=== PATIENT | male | born 1985 | race Caucasian/White ===

== ENCOUNTER 2016-05-28 14:22 | Emergency (ER) | payer MEDICAID, OTHER ==
[2016-05-28] MEDS ORDERED: IOPAMIDOL 300 (61%) 150 ML VIAL IV ONE (14:23)
--- NOTE | 2016-05-28 15:20 | RAD ---
ABDOMEN ONE VIEW HISTORY: Ingestion of fishhooks. Supine abdominal radiograph acquired. COMPARISON: 10/27/2015. FINDINGS: BOWEL GAS PATTERN: No small bowel dilatation noted. ABDOMINOPELVIC CALCIFICATIONS: No abnormal calcifications noted. OSSEOUS STRUCTURES: No destructive lesions. RADIOPAQUE FOREIGN BODY: Multiple fishhooks (at least 13, possibly more) are identified projecting over the left mid abdomen and left sacral ala, enteric and colonic position are possible. POSTSURGICAL CHANGE: Multiple anastomotic staple lines. Evidence of prior cholecystectomy. IMPRESSION: 1. At least 13 separate fishhooks are identified, this number likely underestimated due to superimposition of multiple fishhooks. These are of possible enteric or colonic position. 2. Nonobstructive bowel gas pattern with evidence of prior bowel surgery and prior cholecystectomy.
[2016-05-28] MEDS ORDERED: FENTANYL 100 MCG/2 ML VIAL ONE (15:28)
[2016-05-28] MEDS ORDERED: PROCHLORPERAZINE 5 MG/ML 2 ML VIAL ONE (15:28)
[2016-05-28] MEDS ORDERED: LACTATED RINGERS 1,000 ML ONE (15:28)
--- NOTE | 2016-05-28 15:37 | RAD ---
05/28/2016 3:32 PM CHEST - 1 VIEW History: Patient ate fishhook last night Comparison: None Findings: Single AP view of the chest is obtained. The lungs are clear with out effusion or pneumothorax. The cardiomediastinal silhouette is unremarkable.. The osseous structures are intact.. IMPRESSION: No acute intrathoracic process. Please see abdomen series taken at the same time, on the same day for further details.
[2016-05-28 15:50] LABS: BASO # 0.1 K/mm3 (0.0-0.2); EOS # 0.3 (0.0-0.5); EOS % 4.2 % (0.9-2.9); HEMATOCRIT 43.7 % (32.0-52.0); HEMOGLOBIN 14.6 gm/l (14.0-18.0); IMM NEUT% 0.2 % (0-1); LYMPH # 1.8 (1.0-4.8); LYMPH % 22.2 % (15-45); MEAN CELL VOLUME 86.2 fl (80.0-94.0); MEAN CORPUSCULAR HEMOGLOBIN 28.8 pg (27.0-31.0); MEAN CORPUSCULAR HGB CONC 33.4 g/dl (33.0-37.0); MEAN PLATELET VOLUME 9.7 fl (7.4-10.4); MONO # 0.8 (0.0-0.8); MONO % 9.7 % (4-12); NEUT % 62.7 % (43-75); PLATELET COUNT 261 K/mm3 (130-400)
--- NOTE | 2016-05-28 16:00 | CT ---
Exam Type: ABD/PELVIS W/ CON Date and Time: 05/28/2016 3:31 PM Clinical information: Foreign body ingestion. Comparison: Plain films earlier on the same day Technique: Contiguous axial 4 mm images were obtained from the lung bases through the pelvis after the uneventful IV administration of 125 cc of Isovue-300. Sagittal and coronal reformations with high resolution lung algorithm images were also obtained at this time. CT DI: 9.8 DLP 500.2 FINDINGS: Lung base : Dependent and atelectatic changes note the lung bases. Visualized heart:There is no pericardial effusion. LIVER: within normal limits. BILE DUCTS: normal caliber. GALLBLADDER: Surgically absent PANCREAS: within normal limits. SPLEEN: within normal limits. ADRENALS: within normal limits. KIDNEYS: within normal limits. Stomach and small BOWEL: Surgical staple line is identified in multiple locations. The patient's radiopaque fishhook's are scattered throughout mid abdomen, centered about the umbilicus. This is thought to be within the distal ileum. These are thought to be just proximal to the right lower quadrant surgical staple line is seen on image 66. It is difficult to get a definite calculi on the, even streak artifact. Please see plain film study for further details regarding the number of fissures. Large bowel: Air and stool are noted within the large bowel. LYMPH NODES: No enlarged mesenteric lymph nodes. PERITONEUM: no ascites or free air, no fluid collection. VESSELS: within normal limits RETROPERITONEUM: within normal limits. ABDOMINAL WALL: within normal limits. Bladder: Normal BONES: within normal limits. IMPRESSION: Multiple fishhook's are present within the distal small bowel, on either side of the umbilicus. No evidence of perforation. Postsurgical change from prior bowel surgery and cholecystectomy. Findings were called to Dr. Henry at approximately 1556 hours on 05/28/2016.
[2016-05-28 16:14] LABS: CALCIUM 9.9 mg/dL (8.6-10.3)
[2016-05-28 17:25] LABS: URINE BILIRUBIN NEGATIVE (NEGATIVE); URINE BLOOD NEGATIVE (NEGATIVE); URINE GLUCOSE (UA) NEGATIVE (NEGATIVE); URINE LEUKOCYTE ESTERASE NEGATIVE (NEGATIVE); URINE NITRITE NEGATIVE (NEGATIVE); URINE PROTEIN NEGATIVE (NEGATIVE); URINE UROBILINOGEN NORMAL (0-1 mg/dl)
[2016-05-28 17:26] LABS: URINE APPEARANCE CLEAR; URINE COLOR YELLOW
--- NOTE | 2016-05-28 23:40 | CONS ---
JERSON KINNEY [id number] DATE OF SERVICE: 05/28/2016 This is an emergency room consultation. CONSULTING PHYSICIAN: Dr. Elian Henry REASON FOR CONSULTATION: Swallowed fish hooks. HISTORY OF PRESENT ILLNESS: Jerson Kinney is a 30-year-old male who was seen in the emergency room in consultation on 05/28/2016. Apparently within the past 24 hours he reports that he sleepwalks and has ingested foreign bodies. He is pretty sure that he ingested some fish hooks. He reports abdominal pain. He has had no nausea or vomiting. He is evaluated by the emergency room physician and KUB demonstrates numerous treble type fish hooks in the mid abdomen in two main clumps. With that report he had called me and I told him to get a CT scan. The CT scan shows multiple surgical staple lines. There are radiopaque fish hooks in multiple locations, thought to be the distal ileum. No free air was seen. PAST MEDICAL HISTORY: 1. Mental illness, which includes a diagnosis of PTSD. 2. Munchausen's. PAST SURGICAL HISTORY: 1. Appendectomy. 2. Cholecystectomy. 3. According to a history and physical from October of 2015, he had at least three exploratory laparotomies for removal of foreign bodies. Dr. Palacios at that time did an upper endoscopy to remove fish hooks. He has had an esophageal perforation from ingestion of foreign bodies and has been at [facility]. 4. Apparently he has had an umbilical hernia repair. MEDICATIONS: On admission to the emergency room he reports that he is supposed to be on: 1. Klonopin. 2. Xanax. 3. Possibly Vicodin. ALLERGIES: Codeine and morphine. FAMILY HISTORY: Not obtained. SOCIAL HISTORY: Although he did not say it, there was some question of whether he was recently incarcerated for driving under the influence. He smokes cigarettes. Denies drug use. REVIEW OF SYSTEMS: General - no fevers. Cardiac - no complaints. Pulmonary - no complaints. GI - as above. - no complaints. PHYSICAL EXAMINATION: VITAL SIGNS: Temperature 98.3. Pulse 89. Blood pressure 115/61. Respirations 16. GENERAL: He is awake and alert, appears in no distress. HEENT: Head is atraumatic and normocephalic. Sclera nonicteric. CHEST: No obvious thoracotomy scars seen. ABDOMEN: Complex midline scar, with probable retention type coreas. He is diffusely tender, although the abdomen is soft. He has no involuntary guarding. No masses are palpable. No hernias are appreciated. EXTREMITIES: Without cyanosis, clubbing or edema. I have reviewed his CT scan with the radiologist. The fish hooks appear to have at least made it past one small bowel anastomosis. They appear to be in a different location in the CAT scan compared to the original KUB. None are seen in the stomach or colon. I called around to multiple places to see what kind of records I could obtain. He has been in the [place] system at least four times and apparently was transferred up to [facility] because of esophageal perforation. He has had surgery at [place] at least once for laparotomy. LABORATORIES: White blood cell count is 8.0, hemoglobin 14.6 and platelets are 261. His lactate is 1.5. Sodium 140, potassium 4.7, chloride 107 and his carbon dioxide is 27. BUN is 17, creatinine is 0.9 and glucose is 85. I spoke with the Hospitalist ironer machine, as well as the chief of production of the hospital and expressed my concerns about our hospital's ability to care for his mental illness. He is going to require at least one-on-one observation at all times. I am not sure if a phone consultation with psychiatry is adequate care for him postoperatively. ASSESSMENT: 1. Ingestion of multiple fish hooks. 2. Ill-defined psychiatric illness, with features of Munchhausen's syndrome. 3. Recorded history of PTSD. 4. Possible history of alcohol abuse. PLAN: I have spoken with Dr. Baltazar at [facility], who agrees that this is going to be a complex surgical case that will require postoperative psychiatric input. In conjunction we have decided to transfer him to [facility]. I have told the patient that it is unlikely that these are going to pass on their own. I do not see current signs of peritonitis. I think he is stable for transport. Will direct to Dr. Baltazar's service at [facility]. The patient requested that his medical issues not be discussed with his family. There is no family available for me to discuss this with. I informed the emergency room staff of this request.
== END 2016-05-28 18:34 | disposition short-term general hospital (02) ==
LOC: ED 14:22 → EEVIPCON 14:22 → ED 18:34
DX: T18.9XXA Foreign body of alimentary tract, part unspecified, initial encounter (principal); F17.210 Nicotine dependence, cigarettes, uncomplicated; X58.XXXA Exposure to other specified factors, initial encounter; Y93.89 Activity, other specified; Y92.009 Unspecified place in unspecified non-institutional (private) residence as the place of occurrence of the external cause
CPT/HCPCS: 83605; 85025; 80048; 81003; 74000; 71010; 74177; 96375; 99285 ×2; 96374; 96361 ×2; J0780; J3010; J7120; Q9967